=== PATIENT | female | born 1970 ===

== ENCOUNTER → 2017-09-30 | Day surgery (SDC) | payer BC ==
[~2017-09-30] MED LIST: Propofol 200 MG/20 ML SDV IV ONE; Sodium Chloride 0.9% 500 ML IV SCH
[2017-09-30 14:13] VITALS: BP 103/71
--- NOTE | 2017-09-30 14:32 | OR ---
DATE OF OPERATION: 09/30/2017 PREOPERATIVE DIAGNOSIS: HEMATOCHEZIA. POSTOPERATIVE DIAGNOSIS: HEMATOCHEZIA. SURGEON: Stephan Treadwell MD PROCEDURE: FLEXIBLE SIGMOIDOSCOPY WITH BIOPSIES X4. 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 COMPLICATIONS: None. SPECIMEN: Left-sided biopsies x4. FINDINGS: 1. Flexible sigmoidoscopy to splenic flexure. 2. Minimal residual colitis, most notable in rectosigmoid junction, proximal rectum. RECOMMENDATIONS: Medical followup with Dr. Segura. INDICATIONS: The patient apparently had about a month ago episodes of hematochezia associated with some abdominal cramping. CT showed left-sided colitis from the descending colon to the rectum. Dr. Segura set her up for flexible sigmoidoscopy. DESCRIPTION OF PROCEDURE: The patient was prepped and draped, placed in the left lateral decubitus position. A lubricated Olympus colonoscope was inserted and for the most part easily advanced to the splenic flexure. The patient still had some solid stool, we maneuvered around this. Upon withdrawal, no signs of any colitis was seen in the entire descending colon or for the most part, the sigmoid area. There was a couple random biopsies taken just for thoroughness of the mid and distal sigmoid. There were a few small areas of residual erythema in the rectosigmoid junction, two biopsies were taken. The rectal vault also had some, what appear to be possibly some resolving proctitis. We did do a biopsy of that. Retroflexion showed no perianal lesions. Air was suctioned and the scope removed without complication. BRENT/CHRISTIANE /[id number]
== END ==
LOC: CC.SDS 12:44
PROVIDERS: ATTEND Family Medicine
DX: K52.9 Noninfective gastroenteritis and colitis, unspecified (principal); Z88.8 Allergy status to other drugs, medicaments and biological substances; Z91.040 Latex allergy status; E78.00 Pure hypercholesterolemia, unspecified; E55.9 Vitamin D deficiency, unspecified; Z79.899 Other long term (current) drug therapy; Z90.49 Acquired absence of other specified parts of digestive tract; Z90.710 Acquired absence of both cervix and uterus; F17.210 Nicotine dependence, cigarettes, uncomplicated
CPT/HCPCS: 45331; J2704; J7040